=== PATIENT | female | born 2005 | race Caucasian/White ===

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

== ENCOUNTER 2025-09-10 20:30 | Emergency (ER) | payer MEDICAID ==
[~2025-09-10] VITALS: Ht 177.8 cm; Wt 71.8 kg
[~2025-09-10 20:30] MED LIST changes: -CIME300L4 PO; +CIME300S PO
[2025-09-10 20:43] VITALS: BP 118/74; PULSE 81; RESP 14; O2SAT 100
--- NOTE | 2025-09-10 22:41 | Physician Documentation ---
History of Present Illness ~ Chief Complaint: See Chief Complaint Stated Complaint: TETANUS SHOT Time Seen by MD: 21:11 Primary Medical Doctor: Eugenia Bassett @ [facility] HPI 19-year-old female presents to the ED after injured in a herself on some joleen barbed wire fencing earlier today. No obvious lacerations of she has multiple abrasions on her abdomen for no current bleeding no open wounds. Mom states that she believes she is not up-to-date on her tetanus is requesting a booster while she is Medication Reconciliation Allergies: Coded Allergies: No Known Allergies (Unverified , 12/17/13) Scheduled Cimetidine HCl (Cimetidine), 5 ML PO DAILY Ondansetron ODT* (Zofran ODT*), 4 MG PO Q6H Pantoprazole Sodium (PROTONIX tablet), 1 TAB PO DAILY Past Medical History Past Medical History: No Pertinent History Past Surgical History: no surgical history Smoking Status: Never smoker Alcohol Use: None Drug Use: none Lives with: Mother Lives In: Home Occupation: child Review of Systems All Other Systems at this time: Reviewed and Negative ROS As stated above in the HPI, otherwise all systems are reviewed and negative. Physical Exam Vital Signs: Temperature: 98.8, Heart Rate: 81, Respiratory Rate: 14, BP: 118/74, Pulse Oximetry: 100, Weight: 71.800 Physical Exam General: Alert, no apparent distress. Skin: Mild abrasions in the abdomen in the linear pattern no open wounds no drainage no erythema Progress Results/Orders Results/Orders Completed Orders - RODRÍGUEZ WALKER [employer]OR [employer]OPMENT Tetanus/Pertuss/Diph Acell/Pf (Boostrix (09/10/25 21:15) Vital Signs 09/10/25 09/10/25 20:43 23:17 Temp 98.8 98.8 Pulse 81 Resp 14 B/P (MAP) 118/74 Pulse Ox 100 Medical Decision Making Additional information obtaine: old records Findings Provide patient with a booster for tetanus coverage I do not see any reason to pursue any further wound care this is a no open wounds.. Patient will be discharged after nursing staff complete orders Differential Dx:Considerations: Include: Abscess, AIDS/HIV, Anthrax (cutaneous), Atopic dermatitis, Candidiasis, Contact dermatitis, Drug reaction, Erythema multiforme, Erysipelas, Gangrene, Herpes zoster, Herpes simplex, Hidradenitis suppurativa, Impetigo, Intertrigo, Lymes disease, Molluscum contagiosum, Osteomyelitis, Pediculosis, Pityriasis rosea, Psoriaisis, RMSF, Rosacea, Scabies, Scarlet fever, Tinea, Urticaria, Varicella, Viral exanthema, Other Departure Disposition: HOME / SELF CARE / HOMELESS Impression: Primary Impression: Abrasion Condition: Improved Discharge Instructions: Abrasion, [id number] Additional Instructions: The area clean and dry while your wound heals. Return to the ED for any worsening symptoms Referrals: NO PRIMARY CARE PROVIDER (PCP) Education Educated: Patient Educated regarding: diagnosis Signature Scribe Signature: y Attestation: Scribed for Rodríguez Walker Tongue Presser by Rodríguez Pimentel NP . 09/11/25 23:18 RODRÍGUEZ WALKER NP Sep 10, 2025 22:41
[2025-09-10] MEDS: TETanus/Pertussis (Acell)/Diphther VAC/PF (Tdap-Adult) 0.5ml syringe IMVAC ONE (23:10)
[2025-09-10 23:17] VITALS: TEMP 98.8
== END 2025-09-10 23:19 | disposition home or self-care (01) ==
LOC: ER 20:30
DX: S30.811A Abrasion of abdominal wall, initial encounter (principal); X58.XXXA Exposure to other specified factors, initial encounter; Y93.89 Activity, other specified; Y92.89 Other specified places as the place of occurrence of the external cause; Y99.8 Other external cause status
CPT/HCPCS: 90471; 90715; 99283